=== PATIENT | female | born 1940 | race Two or more races ===

== ENCOUNTER 2017-10-28 15:51 | Inpatient (IN) | payer SELFPAY ==
[~2017-10-28] VITALS: Ht 152.4 cm; Wt 55.8 kg
[2017-10-28 16:43] LABS: BASOPHILS % 1.4 % (0.0-2.0); EOSINOPHILS % 3.3 % (0.0-5.0); HEMATOCRIT. 28.5 % (36.0-48.0); HEMOGLOBIN. 9.5 g/dL (12.0-16.0); LYMPHOCYTES % 20.3 % (20.0-50.0); MEAN CORPUSCULAR HEMOGLOBIN 31.5 pg (28.0-32.0); MEAN CORPUSCULAR VOLUME 94.5 fL (81.0-99.0); MEAN PLATELET VOLUME 9.8 fl (7.4-10.4); MONOCYTES % 6.5 % (2.0-8.0); NEUTROPHILS % 68.5 % (40.0-76.0); PLATELET 198 x1000/uL (130-400); RED BLOOD CELL COUNT 3.02 mill/uL (4.2-5.4); RED CELL DISTRIBUTION WIDTH 13.7 % (11.6-14.6)
[2017-10-28 16:45] LABS: CHLORIDE 113 mEq/L (98-107)
[2017-10-28 16:47] LABS: PROTHROMBIN TIME 10.7 sec (9.4-11.6)
[2017-10-28 21:49] VITALS: BP 141/51
[2017-10-28] MEDS ORDERED: ONDANSETRON HCL 4MG/2ML VIAL IV PRN (23:30)
[2017-10-28] MEDS ORDERED: IPRATROPIUM/ALBUTEROL 0.5-3(2.5)MG/3ML NEB INH PRN (23:30)
[2017-10-28] MEDS ORDERED: CLONIDINE 0.1MG TABLET PO PRN (23:30)
[2017-10-28] MEDS ORDERED: ACETAMINOPHEN 325MG TABLET PO PRN (23:30)
[2017-10-28] MEDS ORDERED: DOCUSATE SODIUM 100MG CAPSULE PO PRN (23:30)
[2017-10-29] VITALS: BP 120/39
[2017-10-29] MEDS ORDERED: DEXTROSE 50% WATER 50ML SYRINGE IV PRN
[2017-10-29] MEDS ORDERED: LISI2.5T47 PO (01:46)
[2017-10-29] MEDS ORDERED: DOCU-150 PO (01:46)
[2017-10-29] MEDS ORDERED: GABA-531 PO (01:46)
[2017-10-29] MEDS ORDERED: ISOS60TA4 PO (01:46)
[2017-10-29] MEDS ORDERED: NIFE20CA PO (01:46)
[2017-10-29] MEDS ORDERED: SIMV20TA6 PO (01:46)
[2017-10-29] MEDS ORDERED: RANI150T12 PO (01:47)
[2017-10-29] MEDS ORDERED: FAMO20TA8 PO (01:47)
[2017-10-29 04:00] VITALS: BP 121/37
[2017-10-29 06:02] LABS: BASOPHILS % 1.3 % (0.0-2.0); EOSINOPHILS % 3.1 % (0.0-5.0); HEMATOCRIT. 26.4 % (36.0-48.0); HEMOGLOBIN. 8.6 g/dL (12.0-16.0); MEAN CORPUSCULAR HEMOGLOBIN 31.2 pg (28.0-32.0); MEAN CORPUSCULAR VOLUME 95.3 fL (81.0-99.0); MONOCYTES % 8.4 % (2.0-8.0); NEUTROPHILS % 62.2 % (40.0-76.0); PLATELET 168 x1000/uL (130-400); RED BLOOD CELL COUNT 2.77 mill/uL (4.2-5.4); RED CELL DISTRIBUTION WIDTH 14.1 % (11.6-14.6)
[2017-10-29] MEDS: BLOOD SUGAR DIAGNOSTIC STRIP TEST SCH ×3 (06:03→17:10)
[2017-10-29] MEDS: INSULIN LISPRO 100 UNITS/ML SUBCUT SCH ×3 (06:12→17:40)
[2017-10-29 06:36] LABS: HDL CHOLESTEROL 40 mg/dL (40-59)
[2017-10-29 06:38] LABS: LDL CHOLESTEROL 50 mg/dL (5-100)
[2017-10-29 06:39] LABS: CREATINE KINASE 37 IU/L (26-192)
[2017-10-29 06:41] LABS: CREATINE KINASE MB FRACTION 1.4 ng/mL (0.5-3.6)
[2017-10-29 08:00] VITALS: BP_SYST 111; BP_DIAS 37; BP_DIAS 47
[2017-10-29 11:04] LABS: *AMPHETAMINES SCREEN URINE NEGATIVE (NEGATIVE); *BARBITURATES SCREEN URINE NEGATIVE (NEGATIVE); *BENZODIAZEPINES SCREEN URINE NEGATIVE (NEGATIVE); *COCAINE SCREEN URINE NEGATIVE (NEGATIVE); METHADONE URINE SCREEN NEGATIVE (NEGATIVE); OPIATES URINE SCREEN NEGATIVE (NEGATIVE)
[2017-10-29 11:05] LABS: CANNABINOID URINE SCREEN NEGATIVE (NEGATIVE); PHENCYCLIDINE URINE SCREEN NEGATIVE (NEGATIVE)
[2017-10-29 11:19] LABS: HEPATITIS B SURFACE ANTIGEN NEGATIVE
[2017-10-29 11:47] LABS: HEPATITIS B CORE AB IGM NEGATIVE
[2017-10-29 11:49] LABS: HEPATITIS A AB IGM NEGATIVE (NEGATIVE)
[2017-10-29 12:00] VITALS: BP 132/59
[2017-10-29 14:59] LABS: CREATINE KINASE 39 IU/L (26-192)
[2017-10-29 15:00] LABS: CREATINE KINASE MB FRACTION 1.2 ng/mL (0.5-3.6)
[2017-10-29 16:00] VITALS: BP 118/42
[2017-10-29 20:00] VITALS: BP 120/46
[2017-10-29] MEDS: ASPIRIN 81MG TABLET PO SCH (20:22)
[2017-10-29] MEDS: LISINOPRIL 2.5MG TABLET PO SCH (20:22)
[2017-10-29] MEDS ORDERED: ATORVASTATIN CALCIUM 20MG TABLET PO SCH (21:00)
[2017-10-29] MEDS: GABAPENTIN 300MG CAPSULE PO SCH (21:17)
[2017-10-29] MEDS: DOCUSATE SODIUM 100MG CAPSULE PO SCH (21:17)
[2017-10-30] VITALS: BP 128/46
[2017-10-30 04:00] VITALS: BP 125/39
[2017-10-30] MEDS: GABAPENTIN 300MG CAPSULE PO SCH (05:51)
[2017-10-30] MEDS: DOCUSATE SODIUM 100MG CAPSULE PO SCH (05:51)
[2017-10-30 07:17] LABS: BASOPHILS % 1.2 % (0.0-2.0); EOSINOPHILS % 3.7 % (0.0-5.0); HEMATOCRIT. 29.1 % (36.0-48.0); HEMOGLOBIN. 9.6 g/dL (12.0-16.0); LYMPHOCYTES % 27.4 % (20.0-50.0); MEAN CORPUSCULAR VOLUME 94.1 fL (81.0-99.0); MEAN PLATELET VOLUME 9.8 fl (7.4-10.4); MONOCYTES % 8.7 % (2.0-8.0); PLATELET 153 x1000/uL (130-400); RED BLOOD CELL COUNT 3.09 mill/uL (4.2-5.4); RED CELL DISTRIBUTION WIDTH 13.8 % (11.6-14.6)
[2017-10-30 07:44] LABS: PHOSPHORUS 5.5 mg/dL (2.5-4.9)
[2017-10-30 08:00] VITALS: BP 137/43
[2017-10-30] MEDS ORDERED: FAMOTIDINE 20MG TABLET PO SCH (09:00)
[2017-10-30] MEDS ORDERED: FOLIC ACID/VITAMIN B COMP W-C TABLET PO SCH (09:00)
[2017-10-30] MEDS ORDERED: ISOSORBIDE MONONITRATE 60MG TABLET SR 24HR PO SCH (09:00)
[2017-10-30] MEDS: LISINOPRIL 2.5MG TABLET PO SCH (09:35)
[2017-10-30] MEDS: ASPIRIN 81MG TABLET PO SCH (09:35)
[2017-10-30] MEDS: CALCIUM ACETATE 667MG CAPSULE PO SCH ×2 (09:43→12:13)
== END 2017-10-30 13:03 | disposition left against medical advice (07) | DRG 425 ==
LOC: ER 17:08 → 8WST 18:56 → EDBEDREQ 18:58 → EDBEDREQTM 18:58 → ENRESERV 20:42
PROVIDERS: ADMIT Internal Medicine; ATTEND Internal Medicine
DX: E87.70 Fluid overload, unspecified (principal); E87.2 Acidosis; I95.9 Hypotension, unspecified; N18.6 End stage renal disease; E11.22 Type 2 diabetes mellitus with diabetic chronic kidney disease; E11.40 Type 2 diabetes mellitus with diabetic neuropathy, unspecified; I13.11 Hypertensive heart and chronic kidney disease without heart failure, with stage 5 chronic kidney disease, or end stage renal disease; E87.5 Hyperkalemia; E78.00 Pure hypercholesterolemia, unspecified; E78.5 Hyperlipidemia, unspecified; Z53.21 Procedure and treatment not carried out due to patient leaving prior to being seen by health care provider; I25.10 Atherosclerotic heart disease of native coronary artery without angina pectoris; Z95.1 Presence of aortocoronary bypass graft; Z99.2 Dependence on renal dialysis
CPT/HCPCS: 36415; 71045; 80048; 80053; 80061; 80305; 82550; 82553; 82962; 83036; 83735; 83880; 84100; 84443; 84484; 85025; 85610; 86705; 86709; 86803; 87340; 93005; 93970; 99285; J1815; J7030

== ENCOUNTER 2018-05-01 19:21 | Inpatient (IN) | payer MEDICAID, OTHER ==
[~2018-05-01] VITALS: Ht 152.4 cm; Wt 57.6 kg
[2018-05-01] MEDS: VANCOMYCIN 1 G PREMIX 200 ML IV SCH (00:50)
[~2018-05-01 19:21] MED LIST: DOCU-150 PO; FAMO20TA8 PO; GABA-531 PO; ISOS60TA4 PO; LISI2.5T47 PO; NIFE20CA PO; RANI150T43 PO; SIMV20TA6 PO
[2018-05-01] MEDS ORDERED: ONDANSETRON HCL 4MG/2ML INJ IV STA (20:35)
[2018-05-01] MEDS ORDERED: MORPHINE SULFATE 4 MG/ML CPJ (NOT FOR IM USE) IV STA (20:35)
[2018-05-01] MEDS ORDERED: FLUORESCEIN SODIUM 1MG/STRIP OP ONE (20:45)
[2018-05-01] MEDS ORDERED: TETRACAINE 0.5% OPHTH DROPS 4ML OP ONE (20:45)
[2018-05-01 21:54] LABS: BASOPHILS % 1.1 % (0.0-2.0); EOSINOPHILS % 3.6 % (0.0-5.0); HEMATOCRIT. 34.6 % (36.0-48.0); HEMOGLOBIN. 11.5 g/dL (12.0-16.0); LYMPHOCYTES % 25.7 % (20.0-50.0); MEAN CORPUSCULAR HEMOGLOBIN 31.1 pg (28.0-32.0); MEAN CORPUSCULAR VOLUME 93.5 fL (81.0-99.0); MONOCYTES % 9.6 % (2.0-8.0); PLATELET 173 x1000/uL (130-400); RED CELL DISTRIBUTION WIDTH 13.6 % (11.6-14.6)
[2018-05-01 22:01] LABS: CHLORIDE 102 mEq/L (98-107)
[2018-05-01] MEDS ORDERED: PIPERACILLIN SODIUM/TAZOBACTAM 4.5 G in DEXT 5% WATER 100 ML IV SCH (23:00)
[2018-05-02] MEDS ORDERED: IOHEXOL-300 100 ML BOTTLE ONE (00:14)
[2018-05-02] MEDS: VANCOMYCIN 1 G PREMIX 200 ML IV SCH (03:12)
[2018-05-02] MEDS ORDERED: DIPHENHYDRAMINE 50MG/ML VIAL IV ONE (04:00)
[2018-05-02 08:00] VITALS: BP 134/45
[2018-05-02 09:45] VITALS: BP 134/60
[2018-05-02] MEDS ORDERED: ACETAMINOPHEN 325MG TABLET PO PRN (10:15)
[2018-05-02] MEDS ORDERED: ACETAMINOPHEN 650MG SUPP PR PRN (10:15)
[2018-05-02] MEDS ORDERED: HYDROCODONE/ACETAMINOPHEN 5/325MG TABLET PO PRN (10:15)
[2018-05-02] MEDS ORDERED: ONDANSETRON HCL 4MG/2ML INJ IV PRN (10:15)
[2018-05-02] MEDS ORDERED: CLONIDINE 0.1MG TABLET PO PRN (10:15)
[2018-05-02] MEDS ORDERED: IPRATROPIUM/ALBUTEROL 0.5-3(2.5)MG/3ML NEB INH PRN (10:15)
[2018-05-02] MEDS ORDERED: LORAZEPAM 0.5MG TABLET PO PRN (10:15)
[2018-05-02] MEDS ORDERED: DIPHENHYDRAMINE 50MG/ML VIAL IV PRN (10:15)
[2018-05-02] MEDS ORDERED: GUAIFENESIN 200MG/10ML SUGAR FREE UDC PO PRN (10:15)
[2018-05-02] MEDS ORDERED: MAGNESIUM/ALUMINUM HYDROXIDE/SIMETHICONE 30ML UDC PO PRN (10:15)
[2018-05-02 12:00] VITALS: BP 146/46
[2018-05-02] MEDS ORDERED: BLOOD SUGAR DIAGNOSTIC STRIP TEST SCH (12:20)
[2018-05-02] MEDS ORDERED: DEXTROSE 50% WATER 50ML SYRINGE IV PRN (12:30)
[2018-05-02] MEDS ORDERED: LEVOFLOXACIN 500MG PREMIX 100 ML IV NR (14:00)
[2018-05-02 15:53] LABS: CLARITY URINE CLOUDY (CLEAR); COLOR URINE YELLOW (YELLOW); KETONES URINE TRACE (NEGATIVE); LEUKOCYTE ESTERASE URINE NEGATIVE (NEGATIVE); NITRITE URINE NEGATIVE (NEGATIVE); OCCULT BLOOD URINE 1+ (NEGATIVE); PH URINE 5.5 (4.5-8.0); PROTEIN URINE NEGATIVE (NEGATIVE); SPECIFIC GRAVITY URINE 1.015 (1.005-1.030); UROBILINOGEN URINE 0.2 E.U./dL (0.2-1.0)
[2018-05-02 16:00] VITALS: BP 119/52
[2018-05-02 16:06] LABS: *AMPHETAMINES SCREEN URINE NEGATIVE (NEGATIVE); *BARBITURATES SCREEN URINE NEGATIVE (NEGATIVE); *BENZODIAZEPINES SCREEN URINE NEGATIVE (NEGATIVE); *COCAINE SCREEN URINE NEGATIVE (NEGATIVE); CANNABINOID URINE SCREEN NEGATIVE (NEGATIVE); METHADONE URINE SCREEN NEGATIVE (NEGATIVE); OPIATES URINE SCREEN PRESUMTIVE POSITIVE (NEGATIVE); PHENCYCLIDINE URINE SCREEN NEGATIVE (NEGATIVE)
[2018-05-02 16:09] VITALS: BP 119/52
[2018-05-02] MEDS ORDERED: DOCUSATE SODIUM 100MG CAPSULE PO PRN (17:00)
[2018-05-02] MEDS ORDERED: INSULIN LISPRO 100 UNITS/ML SUBCUT SCH (17:50)
[2018-05-02] MEDS ORDERED: FLUTICASONE PROPIONATE 50MCG/SPRAY BOTTLE BOTHNSTRLS SCH (21:00)
[2018-05-04] MEDS ORDERED: LEVOFLOXACIN 250MG PREMIX 50 ML IV SCH (14:00)
== END 2018-05-02 16:35 | disposition home or self-care (01) | DRG 113 ==
LOC: ER 19:21 → 6EST 05-02 03:10 → ENRESERV 05-02 04:25 → ER 05-02 04:35
PROVIDERS: ADMIT Internal Medicine; ATTEND Internal Medicine
DX: J32.9 Chronic sinusitis, unspecified (principal); E11.22 Type 2 diabetes mellitus with diabetic chronic kidney disease; I12.0 Hypertensive chronic kidney disease with stage 5 chronic kidney disease or end stage renal disease; N18.6 End stage renal disease; J01.90 Acute sinusitis, unspecified; E78.5 Hyperlipidemia, unspecified; H40.9 Unspecified glaucoma; Z96.1 Presence of intraocular lens; J32.0 Chronic maxillary sinusitis; H54.7 Unspecified visual loss; Z86.73 Personal history of transient ischemic attack (TIA), and cerebral infarction without residual deficits; Z99.2 Dependence on renal dialysis; Z79.899 Other long term (current) drug therapy; Z95.1 Presence of aortocoronary bypass graft
CPT/HCPCS: 36415; 70487; 71045; 80305; 82962; 85651; 93306; 93970; 96365; 96366; 96375; 97162; 99285; J1956; J2270; J2405; J2543; J3370; J7040; J7060; Q9967